=== PATIENT | female | born 1985 | race Caucasian/White ===

== ENCOUNTER 2021-04-30 09:21 | Emergency (ER) | payer OTHER ==
[~2021-04-30] VITALS: Ht 162.6 cm; Wt 67.1 kg
[2021-04-30 09:22] VITALS: BP 130/84
--- NOTE | 2021-04-30 09:31 | NUR ---
C/O 5/10 RIGHT UPPER BACK PAIN X 1 WEEK. PMH: GERD, GASTRITIS
--- NOTE | 2021-04-30 11:01 | NUR ---
DR GELLER AT BEDSIDE.
[2021-04-30] MEDS ORDERED: DICYCLOMINE HCL LIQUID 20 MG, ALUMINUM HYD/MAG/SIMETHICONE 30 ML, LIDOCAINE VISCOUS 2% ... PO ONE ×3 (11:10)
[2021-04-30] MEDS ORDERED: ALUMINUM HYD/MAG/SIMETHICONE 30 ML UDC ONE (11:15)
[2021-04-30] MEDS ORDERED: DICYCLOMINE HCL LIQUID 10 MG/5 ML UDC ONE (11:15)
[2021-04-30 11:36] LABS: BASOPHILS % (AUTO) 0.4 % (0.0-2.0); EOSINOPHILS % (AUTO) 0.5 % (0.0-4.0); HEMATOCRIT 36.6 % (36-48); HEMOGLOBIN 12.4 g/dL (12.0-16.0); LYMPHOCYTES # (AUTO) 1.1 K/uL (2.5-16.5); LYMPHOCYTES % (AUTO) 14.3 % (20.5-51.1); MEAN CORPUSCULAR HEMOGLOBIN 29 pg (27-31); MEAN CORPUSCULAR HGB CONC 34 g/dL (33-37); MEAN CORPUSCULAR VOLUME 85.3 fL (80-94); MONOCYTES # (AUTO) 0.6 K/uL (0.8-1.0); MONOCYTES % (AUTO) 7.7 % (1.7-9.3); NEUTROPHILS # (AUTO) 5.9 K/uL (1.8-7.7); NEUTROPHILS % (AUTO) 77.1 % (42.2-75.2); PLATELET COUNT (AUTO) 357 K/uL (140-450); RED BLOOD CELL COUNT(AUTO) 4.29 MIL/uL (4.20-5.40); RED CELL DISTRIBUTION WIDTH 12.6 % (11.6-13.7); WHITE BLOOD COUNT (AUTO) 7.6 K/uL (4.8-10.8)
[2021-04-30 11:52] LABS: ALBUMIN 4.3 g/dL (3.4-5.0); ANION GAP 12.1 (8-16); CARBON DIOXIDE 30.2 mmol/L (21-32); CREATININE 0.8 mg/dL (0.6-1.3); POTASSIUM 4.3 mmol/L (3.5-5.1); TOTAL BILIRUBIN 0.8 mg/dL (0.0-1.0)
[2021-04-30] MEDS ORDERED: LORazepam 0.5 MG TAB PO ONE (12:40)
--- NOTE | 2021-04-30 13:09 | NUR ---
PT TO CT SCAN.
--- NOTE | 2021-04-30 13:19 | NUR ---
PT BACK FROM CT
[2021-04-30 13:32] VITALS: BP 125/70
[2021-04-30] MEDS ORDERED: LID5T TP (14:48)
--- NOTE | 2021-04-30 15:06 | NUR ---
Patient discharged with v/s stable. Written and verbal after care instructions given and explained. Patient alert, oriented and verbalized understanding of instructions. Ambulatory with steady gait. All questions addressed prior to discharge. ID band removed. Patient advised to follow up with PMD. Rx of LIDOCAINE HYD(LIDODERM 5 %PATCH) given. Opportunity to ask questions provided and answered.
--- NOTE | 2021-04-30 15:07 | NUR ---
The patient's care was reviewed and supervised by Rhina Polanco RN.
== END 2021-04-30 15:07 | disposition home or self-care (01) ==
LOC: MED 09:21
DX: K21.9 Gastro-esophageal reflux disease without esophagitis (principal); J45.909 Unspecified asthma, uncomplicated; Z79.899 Other long term (current) drug therapy
CPT/HCPCS: 36415; 71275; 74174; 80053; 81002; 82150; 83690; 85025; 99285; Q9967